=== PATIENT | male | born 1945 | race Caucasian/White ===

== ENCOUNTER 2019-05-17 23:35 | Observation (INO) | payer MEDICARE, BC ==
[2019-05-17] MEDS ORDERED: Aspirin Chewable 81 MG TAB ONE (23:54)
[2019-05-18] MEDS ORDERED: Ondansetron PF 4 MG/2 ML Vial ONE (00:05)
--- NOTE | 2019-05-18 00:05 | RAD ---
Chest AP view INDICATION: Chest pain COMPARISON: July 31, 2017 FINDINGS: Lungs:Bibasilar volume loss Cardiac silhouette:Heart size is normal. Midline sternotomy changes and dual-lead pacemaker are stabl e. There is a right chest wall port. Pulmonary vasculature:Normal Pleural spaces:No pleural effusion or pneumothorax is demonstrated. Upper abdomen:No abnormality seen. Osseous structures: No acute osseous abnormality. Additional findings:None. IMPRESSION: Bibasilar atelectasis.
[2019-05-18 00:08] LABS: INR-International Normal Ratio 1.8; PTT 40.7 SEC (22.9-36.1); Prothrombin Time 20.4 SEC (12.0-14.7)
[2019-05-18 00:17] LABS: Hemoglobin 9.4 g/dL (14.0-18.0); Hypochromia SLIGHT = 6-15 cells (100X) (0-5/hpf); Lymphocytes 52 % (21-51); MDiff Complete? YES; Macrocytosis SLIGHT = 6-15 cells (100X) (0-5/hpf); Mean Corpuscular HGB CONC 34.9 g/dL (32.0-36.0); Mean Corpuscular Hemoglobin 41.3 pg (27.0-31.0); Mean Platelet Volume 9.4 fL (7.4-10.4); Monocytes 16 % (0-10); Neutrophil 32 % (42-75); Platelet Count 41 thou/uL (130-400); Platelet Morphology Comment Appears Decreased; RBC Distribution Width 16.9 % (11.5-14.5); Red Blood Cell (RBC) Count 2.28 mill/uL (4.70-6.10); White Blood Cell (WBC) Count 2.9 thou/uL (4.8-10.8)
[2019-05-18 00:24] LABS: ALT (SGPT) 85 U/L (8-55); AST (SGOT) 121 U/L (5-34); Albumin 3.4 g/dL (3.4-4.8); Alkaline Phosphatase 137 U/L (40-110); Anion Gap 14 mmol/L (10-20); BUN (Urea Nitrogen) 13 mg/dL (8.4-25.7); Calc. Creatinine Clearance 0 mL/min (70-130); Carbon Dioxide 28 mmol/L (23-31); Chloride 103 mmol/L (98-107); Estimated GFR-MDRD 61; Globulin 3.1 g/dL (2.4-3.5); Glucose 110 mg/dL (83-110); Potassium 4.2 mmol/L (3.5-5.1); Protein, Total 6.5 g/dL (5.8-8.1); Sodium 141 mmol/L (136-145)
[2019-05-18 00:46] LABS: CKMB 0.8 ng/mL (0-6.6)
[2019-05-18] MEDS ORDERED: Bisacodyl 10 MG SUPP PR PRN (02:19)
[2019-05-18] MEDS ORDERED: Ondansetron ODT 4 MG TAB PO PRN (02:19)
[2019-05-18] MEDS ORDERED: Nitroglycerin 0.4 MG TAB (25 Tab Bottle) SL PRN (02:21)
[2019-05-18] MEDS ORDERED: Morphine 2 MG/ML SYRINGE SLOW IVP PRN (02:21)
[2019-05-18 03:02] LABS: Troponin I 0.012 ng/mL (< 0.028)
[2019-05-18 03:15] VITALS: BMI 26.1
--- NOTE | 2019-05-18 03:16 | HP ---
PRESENTING COMPLAINT: Chest pain. HISTORY OF PRESENT ILLNESS: Mr. Larissa Linares is a 74-year-old male with past medical history of liver cirrhosis with recurrent hepatic encephalopathy, history of coronary artery disease status post CABG 15 years ago with no followup PCI or cardiac event since then, who was brought in by the today after the patient reportedly complained of chest pain. The patient points to his abdomen as the location of his chest pain. He also admits to feeling weak and having pain all over his body. He denies any worsening shortness of breath. The patient is a poor historian, is helping his history. Apparently, the patient has been forgetting his afternoon dose of lactulose. states the patient appears more confused than his baseline. The patient just feels weak. He is unable to give more history. PAST MEDICAL HISTORY: Significant for hepatic encephalopathy, history of liver cirrhosis, history of AML status post chemo, history of chemo-induced bradycardia status post pacemaker placement. PAST SURGICAL HISTORY: Status post CABG as well as a pacemaker placement. FAMILY HISTORY: Noncontributory in this 74-year-old male. SOCIAL HISTORY: The patient is a lifelong nonsmoker. No history of alcohol or illicit drug use. Resides in a community with his spouse, who is the patient's caregiver. HOME MEDICATIONS: See medication full list after reconciliation. ALLERGIES: NO NEW DRUG ALLERGIES. REVIEW OF SYSTEMS: Poor due to the patient being confused. The patient admits to generalized body pain. All other systems reviewed, negative. The patient also complaining of dysuria with intermittent urinary incontinence. PHYSICAL EXAMINATION: VITAL SIGNS: Blood pressure of 134/66, pulse of 65, respiratory rate of 12, O2 saturation 100% on room air. GENERAL: Elderly male. On nasal cannula O2, but taking off, the patient is saturating 100%. HEENT: Head is atraumatic, normocephalic. Pupils equal, reactive to light. Anicteric. [place] conjunctivae. Dry oral mucosa. NECK: No JVD. No carotid bruit. RESPIRATORY: Good air entry. No crepitations. CARDIOVASCULAR: S1 and S2, palpable pacemaker in-situ. Also right chest wall chemo port in-situ. ABDOMEN: Tenderness over the epigastric, extending to the left lower quadrant, left upper quadrant but no guarding. Bowel sounds positive. RECTAL: Deferred. EXTREMITIES: No pedal edema. No calf tenderness. Also noted tenderness over the spine as well as bilateral shoulder area. NEUROLOGIC: The patient is alert, oriented to person, but not to time or place (the patient thinks he is in senior living), and moving extremities equally with no neurological focal motor deficit. LABORATORY DATA: WBC 2.9, hemoglobin 9.4, platelets 41, neutrophils 32%. INR 1.8, PTT 40, potassium 4.2, bicarb 28, BUN 13, creatinine 1.1. AST elevated at 121, ALT 85, alkaline phosphatase 137. Troponin 0.03. Chest x-ray shows bibasilar atelectasis. IMPRESSION: 1. Generalized body pain. 2. History of coronary artery disease. 3. Rule out urinary tract infection. 4. Altered mental status with presumed recurrent hepatic encephalopathy due to lactulose nonadherence. PLAN: We admit the patient to observation status for the following. 1. Generalized body pain, doubt chest pain since the patient pointing to his abdomen as etiology of pain. We obtain serial set of cardiac enzymes. We also obtain ammonia level. We will do p.r.n. pain medication as tolerated with IV morphine. Avoid confusion. 2. Presumed UTI. We will obtain UA now. 3. Altered mental status with presumed hepatic encephalopathy. We will obtain serum ammonia level. Resume lactulose t.i.d. for now. If elevated ammonia, may need to increase lactulose dosage. 4. Pancytopenia, stable. Continue to monitor. 5. Advance directive. states the patient wants to be DNR. We will leave as DNR status for now. 6. DVT prophylaxis. We will do subcutaneous heparin. TIME SPENT: Total time spent in review of record greater than 55 minutes. Job ID: [id number]
[2019-05-18] MEDS ORDERED: Levothyroxine Sodium 25 MCG TAB PO SCH (06:00)
[2019-05-18 06:47] LABS: Bacteria/HPF None Seen HPF (None Seen); Bilirubin Negative (Negative); Blood, Urine Negative (Negative); Clarity Clear (Clear); Glucose, Urine (Dipstick) Normal (Negative); Leukocyte Negative Leu/uL (Negative); Nitrite Negative (Negative); Protein, Urine (Dipstick) 20 mg/dL (Neg-Trace); RBC/HPF 0-3 HPF (0-3); Squamous Epithelial None Seen HPF (0-3); Urobilinogen 6 mg/dL (Less than 2); WBC/HPF 0-3 HPF (0-3)
[2019-05-18 06:59] LABS: Urine Culture Reflex No No
[2019-05-18] MEDS ORDERED: Tamsulosin HCl 0.4 MG CAP PO SCH (09:00)
[2019-05-18] MEDS ORDERED: Aggrenox 200-25mg CAP PO SCH (09:00)
[2019-05-18] MEDS ORDERED: Famotidine 20 MG TAB PO SCH (09:00)
[2019-05-18] MEDS: Heparin 5,000 UNITS/ML VIAL SC SCH ×2 (10:16→15:45)
[2019-05-18 11:49] LABS: Hemoglobin 9.2 g/dL (14.0-18.0); Mean Corpuscular HGB CONC 33.6 g/dL (32.0-36.0); Mean Corpuscular Hemoglobin 39.5 pg (27.0-31.0); Mean Platelet Volume 9.7 fL (7.4-10.4); Platelet Count 41 thou/uL (130-400); RBC Distribution Width 17.4 % (11.5-14.5); Red Blood Cell (RBC) Count 2.34 mill/uL (4.70-6.10)
[2019-05-18 12:09] LABS: ALT (SGPT) 95 U/L (8-55); AST (SGOT) 152 U/L (5-34); Albumin 3.2 g/dL (3.4-4.8); Alkaline Phosphatase 114 U/L (40-110); Anion Gap 13 mmol/L (10-20); BUN (Urea Nitrogen) 13 mg/dL (8.4-25.7); Bilirubin, Total 2.8 mg/dL (0.2-1.2); Calc. Creatinine Clearance 74 mL/min (70-130); Calcium 8.7 mg/dL (7.8-10.44); Carbon Dioxide 25 mmol/L (23-31); Chloride 107 mmol/L (98-107); Estimated GFR-MDRD 75; Glucose 92 mg/dL (83-110); Potassium 3.9 mmol/L (3.5-5.1); Protein, Total 6.2 g/dL (5.8-8.1); Sodium 141 mmol/L (136-145)
[2019-05-18 12:13] LABS: Troponin I 0.032 ng/mL (< 0.028)
[2019-05-18 12:20] LABS: Band 2 % (5-11); Lymphocytes 38 % (21-51); MDiff Complete? YES; Macrocytosis SLIGHT = 6-15 cells (100X) (0-5/hpf); Metamyelocyte 1 % (0-0); Monocytes 13 % (0-10); Myelocyte 2 % (0-0); Neutrophil 23 % (42-75); Ovalocytes MODERATE= 6-15 cells (100X) (0-1/hpf); Platelet Morphology Comment Appears Decreased; Polychromasia MODERATE = 3-4 cells (100X) (0-2/hpf); Reactive Lymphocytes 13 % (0-10); Reflex for Review?? YES; Schistocytes SLIGHT = 2-5 cells (100X) (0-1/hpf); Tear Drops SLIGHT = 2-5 cells (100X) (0-1/hpf)
[2019-05-18 15:52] VITALS: BP 124/60; TEMP 97.6
[2019-05-18] MEDS ORDERED: Calcium Carbonate 600 MG TAB PO SCH (21:00)
[2019-05-18] MEDS ORDERED: Rifaximin 550 MG TAB PO SCH (21:00)
[2019-05-18] MEDS ORDERED: Simvastatin 5 MG TAB PO SCH (21:00)
[2019-05-19] MEDS ORDERED: Potassium Chloride 20 MEQ TAB PO SCH (08:00)
--- NOTE | 2019-05-19 14:00 | DIS ---
DATE OF ADMISSION: 05/18/2019 DATE OF DISCHARGE: 05/18/2019 PRIMARY CARE PHYSICIAN: Dr. David Hogan. REASON FOR ADMISSION: Chest pain. DIAGNOSES AT DISCHARGE: 1. Atypical chest pain, resolved. 2. Hepatic encephalopathy, mild, chronic. 3. End-stage liver disease. 4. Abdominal pain secondary to #3, improved. 5. Urinary tract infection ruled out. 6. Pancytopenia. PROCEDURES: None. CONSULTATIONS: None. SUMMARY OF HOSPITAL COURSE: This is a 74-year-old white male with a known history of liver cirrhosis with recurrent hepatic encephalopathy, also with history of coronary artery disease, status post CABG 15 years ago without chest complaints since. He came into the emergency room, was reporting some chest pain. On admission, he actually pointed to his abdomen when describing chest discomfort and that was gone, and mostly his pain was in his lower abdomen. He noted this over the last couple of days along with mild weakness over the rest of his body. This has gotten worse since he has not been taking his lactulose 3 times a day, just twice a day. No other significant history. The states that his mental status is baseline with mild confusion after a dose of lactulose in the hospital, but his mental status that was mildly confused was back to his baseline. The patient was observed in the hospital. Troponins were trended. He did have a mildly indeterminate troponin that did not elevate over the course of his hospitalization. He had no further chest complaints. His EKG was unchanged previously and showed no ST- segment changes. There is also concern about a possible UTI. Urinalysis was done, which showed negative for infection. The patient was doing decently well on the day of discharge. He did have Physical Therapy work with him. He got up and walked a little bit in the room and then his knees gave out underneath him. He required significant assistance to get back into the bed. and patient relate this to him not having walked much recently and really staying in bed mostly for the last couple of days. I did discuss with and the patient the negative cardiac workup and need for cardiac outpatient followup with his normal programmer analyst consultant who is at [facility]. I also discussed with them his decompensated physical status and inability to walk safely at home. The states that she has a wheelchair at home and we will just have him transition to that and move him around the room. They did not want to look into rehab stays, SNF, or hospice at this point. I did stress to them that if he has recurrent chest pain or if he gets worse, than he should return to the hospital. They did express understanding of this and we will set up his cardiology appointment when they get home. I did examine the patient on the day of discharge. He had no abdominal tenderness to palpation. No chest pain. Normal vital signs. Of note, when his knees collapsed underneath him, he did not have any hypotension or vital sign abnormalities per PT. DISCHARGE MANAGEMENT: Discharged home to continue home health. He already has Physical Therapy coming to his house. ACTIVITY: As tolerated, but ambulate with assistance of physical therapy only. DIET: Healthy heart fluid-restricted diet. MEDICATIONS: The patient is to resume all of his home medications. 1. Calcium 1200 mg twice a day. 2. Lactulose 30 mL three times a day. They can increase this further if he is not passing soft bowel movements. 3. Synthroid 88 mcg daily. 4. Zofran 4 mg three times a day as needed. 5. Potassium chloride 20 mEq daily. 6. Pravastatin 20 mg at night. 7. Xifaxan 550 mg twice a day. 8. Tamsulosin 0.4 mg daily. 9. Robaxin as needed. Job ID: [id number] [facility]
== END 2019-05-18 17:07 | disposition home health service (06) ==
LOC: ERS 23:35 → 2SW 05-18 02:39
PROVIDERS: ADMIT Internal Medicine; ATTEND Internal Medicine
DX: R07.89 Other chest pain (principal); K72.90 Hepatic failure, unspecified without coma; D61.818 Other pancytopenia; I25.10 Atherosclerotic heart disease of native coronary artery without angina pectoris; F31.9 Bipolar disorder, unspecified; K74.60 Unspecified cirrhosis of liver; Z66 Do not resuscitate; Z85.6 Personal history of leukemia; Z79.899 Other long term (current) drug therapy; Z88.0 Allergy status to penicillin; Z91.048 Other nonmedicinal substance allergy status; Z95.0 Presence of cardiac pacemaker; Z95.1 Presence of aortocoronary bypass graft
CPT/HCPCS: 71045; 80053 ×2; 81001; 82140; 82553; 84484 ×3; 85025 ×2; 85610; 85730; 93005; 96374; 97139 ×2; 99285; G0378 ×2; 36415; 85060; J2405

== ENCOUNTER 2019-06-03 03:59 | Inpatient (IN) | payer MEDICARE, BC ==
[2019-06-03 05:16] LABS: INR-International Normal Ratio 1.9; PTT 42.1 SEC (22.9-36.1); Prothrombin Time 21.8 SEC (12.0-14.7)
[2019-06-03 05:28] LABS: Hemoglobin 6.6 g/dL (14.0-18.0); Mean Corpuscular HGB CONC 34.1 g/dL (32.0-36.0); Mean Corpuscular Hemoglobin 39.7 pg (27.0-31.0); Mean Platelet Volume 10.9 fL (7.4-10.4); Platelet Count 40 thou/uL (130-400); RBC Distribution Width 17.6 % (11.5-14.5); Red Blood Cell (RBC) Count 1.66 mill/uL (4.70-6.10); White Blood Cell (WBC) Count 3.7 thou/uL (4.8-10.8)
[2019-06-03 05:31] LABS: ALT (SGPT) 64 U/L (8-55); AST (SGOT) 83 U/L (5-34); Alkaline Phosphatase 91 U/L (40-110); Anion Gap 14 mmol/L (10-20); BUN (Urea Nitrogen) 16 mg/dL (8.4-25.7); Bilirubin, Total 2.9 mg/dL (0.2-1.2); Calc. Creatinine Clearance 0 mL/min (70-130); Calcium 8.2 mg/dL (7.8-10.44); Carbon Dioxide 25 mmol/L (23-31); Chloride 103 mmol/L (98-107); Estimated GFR-MDRD 81; Glucose 99 mg/dL (83-110); Potassium 3.7 mmol/L (3.5-5.1); Sodium 138 mmol/L (136-145)
[2019-06-03 05:45] LABS: Band 1 % (5-11); Differential Comment Immature Cell(s); Lymphocytes 40 % (21-51); Metamyelocyte 1 % (0-0); Monocytes 8 % (0-10); Myelocyte 3 % (0-0); Neutrophil 35 % (42-75); Platelet Morphology Comment Appears Decreased
[2019-06-03 05:46] LABS: MDiff Complete? YES
[2019-06-03 07:07] LABS: Reticulocyte Count 6.3 % (0.5-1.5)
--- NOTE | 2019-06-03 08:32 | CT ---
CT ABDOMEN AND PELVIS WITH CONTRAST: COMPARISON: 08/03/2017. HISTORY: Right upper quadrant abdominal pain. TECHNIQUE: Multiple contiguous axial images were obtained in a CT of the abdomen and pelvis with contrast. Sagi ttal and coronal reformats were performed. FINDINGS: The liver is small and slightly nodular in appearance. There is a moderate amount of ascites. A michael cified gallstone is seen in the gallbladder. The kidneys, adrenal glands, spleen, and pancreas are u nremarkable. No free air is seen in the abdomen or pelvis. The large and small bowel are unremarkable. Atheroscl erotic calcifications are seen in the aorta. No abdominal or pelvic lymphadenopathy are seen. Atelectasis is seen in both lung bases. Degenerative changes are seen in the spine. The patient is status post CABG. The visualized inferior thoracic is otherwise unremarkable. IMPRESSION: 1. Cirrhosis with sequelae of portal hypertension/ascites. 2. Cholelithiasis. POS: [facility]
[2019-06-03] MEDS ORDERED: Iopamidol-370 76% 500 ML 1 ML ONE (09:53)
--- NOTE | 2019-06-03 09:59 | HP ---
PRIMARY CARE PHYSICIAN: Dr. Hogan CHIEF COMPLAINT: Abdominal pain. HISTORY OF PRESENT ILLNESS: The history of present illness is taken from the patient's who is at the bedside. She says that the patient has a history of cirrhosis and he has been diagnosed with known cirrhosis for the past 2 years. She is not sure of the cause of the cirrhosis. He was never a drinker. She believes it may be due to chemotherapy related to AML. Nevertheless, the patient was recently hospitalized here for hepatic encephalopathy. She admits that the patient typically will refuse to take his evening dose of lactulose. He was treated here and released. She says that in the last couple of days he has been complaining of abdominal pain. She is not really sure where it is located, but says that last night he was yelling out complaining of the pain. She says he has not had a bowel movement in 4 days. There has been no vomiting, no melena, and his last bowel movement was more or less loose, but there was no blood there. She also noted that he looked short of breath. He was sitting in the chair and appeared to be panting. He has home oxygen and she put oxygen on him and he seemed to improve, but due to the abdominal pain, she brought him into the ER for evaluation. When he was evaluated, he was found to have a hemoglobin of 6.6, and he is also pancytopenic and he has worsening coagulopathy as well as his bilirubin is higher than on previous admissions and he is being admitted for acute anemia and decompensated cirrhosis. REVIEW OF SYSTEMS: Unobtainable as the patient is basically confused and not able to contribute much other than he does endorse having abdominal pain. He points to the lower right quadrant, where he was experiencing the pain, but otherwise was not able to offer any additional information. PAST MEDICAL HISTORY: Taken from his previous hospital stay and includes cirrhosis. It appears to be cryptogenic and history of hepatic encephalopathy, chemotherapy-induced bradycardia and AML. PAST SURGICAL HISTORY: He has had a pacemaker placed. ALLERGIES: TO PENICILLIN AND HE IS NOT SURE WHAT THE REACTION IS. SOCIAL HISTORY: He is a lifelong smoker and he smoked about a half a pack a day. His said he never drank. He is and he wants to be a DNR. FAMILY HISTORY: Significant for coronary artery disease in mother with Parkinson. CURRENT MEDICATIONS: Include: 1. Levothyroxine 88 mcg daily. 2. Pravastatin 20 mg daily. 3. Tamsulosin 0.4 mg daily. 4. Hydrocortisone 5 mg twice a day. 5. Rifaximin as directed. 6. Lactulose 30 mL and that is 20 g 3 times a day. 7. Zofran 4 mg as needed. 8. Potassium chloride 20 mEq as needed. 9. Ranitidine 150 mg twice daily. 10. Vitamin D3 2000 units once a day. PHYSICAL EXAMINATION: GENERAL: He is confused. He is chronically ill in appearance and he is jaundice. VITAL SIGNS: Blood pressure is 93/49, heart rate 85, respiratory rate of 18, temperature is 97.8, O2 saturation was 91% on room air. HEENT: Pupils are equal and reactive. He has icteric sclerae. Throat, there is no erythema. No exudates. NECK: No adenopathy. No bruits. LUNGS: Clear to auscultation. There is no wheezing, no rales, no rhonchi CARDIOVASCULAR: He has a normal S1 and S2. There is no S3 or S4. No murmurs, clicks, or rubs. ABDOMEN: Obese, slightly distended. He has some mild diffuse tenderness. There is no rebound, no guarding. He did have some stigmata of chronic liver disease. EXTREMITIES: He has no edema and he does have some muscle wasting. No joint effusions. NEUROLOGICAL: Exam is grossly nonfocal. LABORATORY DATA: White blood cell count 3.7, hemoglobin 6.6, hematocrit is 19.4 , and platelet count of 40. INR is 1.9. The sodium is 138, potassium 3.7, chloride is 103, CO2 is 25, BUN of 16, creatinine 0.92, glucose is 99, bilirubin is 2.9. ALT of 64, AST of 83. ASSESSMENT: This is a 74-year-old gentleman, who presents with [id number] anemia. No history of any recent gastrointestinal bleed that is known. Will check iron studies to further clarify, as well as a reticulocyte count. However, he is at risk for potential esophageal varices as well as potentially peptic ulcer disease and he also appears to have decompensated cirrhosis. For this reason, we are going to admit the patient and consult gastroenterology for evaluation. We will await the results of the CT scan. He may require paracentesis. We will transfuse him [address] him on IV Protonix as well as consider IV Sandostatin. Monitor his hemoglobin and hematocrit and further recommendations to follow. Job ID: [id number] [facility]
[2019-06-03] MEDS ORDERED: Sodium Chloride 0.9% (PF) 10 ML VIAL FS PRN (10:46)
[2019-06-03] MEDS ORDERED: Pantoprazole 40 MG VIAL IVP SCH (11:00)
[2019-06-03 11:22] LABS: Reticulocyte Count 6.6 % (0.5-1.5)
[2019-06-03 11:48] LABS: Iron 155 ug/dL (65-175); Iron Binding Capacity, Total 148 mcg/dL (261-462)
[2019-06-03 16:00] VITALS: BMI 29.0
--- NOTE | 2019-06-03 18:52 | CON ---
DATE OF CONSULTATION: 06/03/2019 REQUESTING PHYSICIAN: Edgardo Stewart MD REASON FOR CONSULTATION: Cirrhosis and acute on chronic anemia. HISTORY OF PRESENT ILLNESS: Vijay Dias is a 74-year-old gentleman, who was admitted to the hospital this morning. He has a significant past medical history of coronary artery disease, status post CABG; and myelodysplastic syndrome. History is obtained mainly from the patient's . She says that back in 2014, his myelodysplastic syndrome progressed to AML, and he underwent chemotherapy treatments for a couple of years at that point. He subsequently developed bradycardia and had to have a pacemaker placed. He was also subsequently diagnosed with cirrhosis about 2 years ago. He has seen Dr. Arden Rahman at [facility] in the past. She says he has undergone EGD and colonoscopy in the remote past with Dr. Rahman, but has not seen him for some time, but they were planning to see him later this month. At any rate, Mr. Dias is managed for hepatic encephalopathy with lactulose and rifaximin. She denies any prior history of gastrointestinal bleeding or any prior issues with ascites for the patient. Over the past few days, the patient's mental status has been a bit below baseline and he has also been complaining intermittently of some migratory abdominal discomfort throughout the abdomen. She says he was having some diarrhea for several days and so backed off his lactulose over the past 2 days, he has only taken it twice daily and has not had any bowel movement during that time. Upon presentation to the hospital here, labs demonstrate pancytopenia with an acute on chronic anemia, hemoglobin is 6.6. This is down from his baseline which seems to be in the 9 to 10 range just a few weeks ago. He also has worsening thrombocytopenia with platelets of 40. BUN is normal. There has been no melena or hematochezia. No vomiting. No fever. Imaging shows nodular liver and also moderate ascites. REVIEW OF SYSTEMS: Full review of systems including constitutional, head, eyes, ears, nose, throat, GI, , cardiovascular, respiratory, musculoskeletal, neurologic systems is negative except as noted in the HPI. PAST MEDICAL HISTORY: 1. Cirrhosis, unknown etiology, diagnosed 2 years ago. 2. Hepatic encephalopathy, on lactulose and rifaximin. 3. Myelodysplastic syndrome. 4. AML, status post chemotherapy in 2014. 5. Bradycardia, status post pacemaker placement. 6. Coronary artery disease, status post CABG. 7. Home oxygen use at night. ALLERGIES: PENICILLIN. OUTPATIENT MEDICATIONS: 1. Levothyroxine. 2. Pravastatin. 3. Tamsulosin. 4. Hydrocortisone 5 mg twice daily. 5. Rifaximin 550 mg twice daily. 6. Lactulose 30 mL three times daily, with some history of nonadherence. 7. Zofran as needed. 8. Potassium chloride. 9. Ranitidine 150 mg twice daily. 10. Vitamin D3 of 2000 units daily. FAMILY HISTORY: Significant for coronary artery disease and parkinsonism in mother. No known family history of GI illness, malignancy, or liver disease. SOCIAL HISTORY: He is a lifelong smoker of about a half a pack per day. No alcohol use. No drug use. He is DNR status. PHYSICAL EXAMINATION: VITAL SIGNS: Temperature 98.3, pulse 81, blood pressure 113/56, and 98% oxygen saturation on 3 L nasal cannula. GENERAL: Pale, jaundiced, 74-year-old man appearing chronically ill, lying in bed comfortably, somnolent but arousable, in no acute distress. SKIN: He is pale. He is jaundiced. EYES: Scleral icterus. Extraocular movements intact. ENT: Mucous membranes moist. No oral lesions. LYMPH: No submandibular or supraclavicular lymphadenopathy. THYROID: Nontender to palpation. HEART: Regular rate and rhythm. LUNGS: Clear to auscultation bilaterally. ABDOMEN: Mild distention. Some dullness to percussion in the flanks. Bowel sounds are present. Soft, nontender to palpation. EXTREMITIES: No peripheral edema. VESSELS: Radial pulses 2+ bilaterally. NEUROLOGIC: The patient moves all extremities. Cranial nerves appear to be intact bilaterally. No focal deficits. LABORATORY STUDIES: Hemoglobin 6.6, MCV 117, WBC 3.7, platelets 40. INR is 1.9. BUN 16, creatinine 0.92, total bilirubin 2.9, alkaline phosphatase 91, AST 83, ALT 64, albumin 3.0. Ammonia only 35. Ferritin elevated to , iron 155, and TIBC is 148. IMAGING STUDIES: CT of the abdomen and pelvis demonstrates nodular liver, moderate ascites, and cholelithiasis. Spleen and pancreas appear normal. ASSESSMENT AND PLAN: 1. Pancytopenia. 2. Acute on chronic anemia, macrocytic, with lab evidence of iron overload and no reported overt gastrointestinal bleeding. 3. History of myelodysplastic syndrome and acute myeloid leukemia. The patient does indeed have a chronic pancytopenia with worsening hemoglobin over the past few days, but no other overt evidence of gastrointestinal bleeding. Note, the BUN is normal, this certainly would not represent brisk ulcer bleed or variceal hemorrhage. Occult gastrointestinal bleeding lesion is certainly a possibility, however, the patient really is not in any shape to undergo any endoscopy. If his clinical status were to improve and he wanted to proceed, we could potentially perform diagnostic EGD and colonoscopy later this admission. For now, we would check further labs including B12 and folic acid, and I think formal hematology consultation would certainly be reasonable given his known history of myelodysplastic syndrome and acute myeloid leukemia. 4. Cirrhosis, unknown etiology. 5. Ascites, possibly new onset, with no given history of prior ascites. 6. Coagulopathy. The patient's cannot recall him ever undergoing liver biopsy or having any formal etiology for his cirrhosis. Note, the ferritin is elevated, but this is possibly secondary to prior blood transfusions. We will obtain lab workup including viral hepatitis serologies, hemochromatosis genetic profile, autoimmune markers, etc. I also do think it would be worthwhile to send him for diagnostic paracentesis with Interventional Radiology. 7. Hepatic encephalopathy. Continue on lactulose and rifaximin. Overall, given the patient's comorbidities and clinical status, prognosis is guarded. Job ID: [id number]
[2019-06-03] MEDS: Rifaximin 550 MG TAB PO SCH (21:03)
[2019-06-03] MEDS: Pantoprazole 40 MG VIAL IVP SCH (21:04)
[2019-06-04 06:21] LABS: Hemoglobin 7.6 g/dL (14.0-18.0); Mean Corpuscular HGB CONC 33.8 g/dL (32.0-36.0); Mean Platelet Volume 10.8 fL (7.4-10.4); Platelet Count 25 thou/uL (130-400); RBC Distribution Width 22.7 % (11.5-14.5); Red Blood Cell (RBC) Count 2.11 mill/uL (4.70-6.10)
[2019-06-04 06:38] LABS: Hypochromia SLIGHT = 6-15 cells (100X) (0-5/hpf); Lymphocytes 66 % (21-51); MDiff Complete? YES; Macrocytosis SLIGHT = 6-15 cells (100X) (0-5/hpf); Monocytes 8 % (0-10); Neutrophil 20 % (42-75); Platelet Morphology Comment Appears Decreased; Reactive Lymphocytes 6 % (0-10)
[2019-06-04 06:43] LABS: ALT (SGPT) 54 U/L (8-55); AST (SGOT) 70 U/L (5-34); Albumin 2.9 g/dL (3.4-4.8); Alkaline Phosphatase 91 U/L (40-110); Anion Gap 13 mmol/L (10-20); BUN (Urea Nitrogen) 16 mg/dL (8.4-25.7); Bilirubin, Total 3.9 mg/dL (0.2-1.2); Calc. Creatinine Clearance 73 mL/min (70-130); Calcium 8.4 mg/dL (7.8-10.44); Carbon Dioxide 28 mmol/L (23-31); Chloride 103 mmol/L (98-107); Estimated GFR-MDRD 70; Glucose 85 mg/dL (83-110); Potassium 3.9 mmol/L (3.5-5.1); Protein, Total 5.9 g/dL (5.8-8.1); Sodium 140 mmol/L (136-145)
[2019-06-04 06:58] LABS: Vitamin B12 1917 pg/mL (211-911)
[2019-06-04 07:12] LABS: HBCM Index 0.06 S/CO (0-0.79); HBSAg Index 0.21 S/CO (0-0.99); Hep A IgM AB Non-Reactive (NonReactive); Hep B Surf Ag Non-Reactive S/CO (NonReactive); Hep C IgG Ab Non-Reactive (NonReactive); Hep C Index 0.12 S/CO (0-0.79); Hepatitis B Core IgM Abs Non-Reactive (NonReactive)
[2019-06-04] MEDS ORDERED: Prevnar 13-Val Conj/PF 0.5 ML SYRINGE IM ONE (09:00)
[2019-06-04] MEDS: Folic Acid 1 MG TAB PO SCH (09:38)
[2019-06-04] MEDS: Rifaximin 550 MG TAB PO SCH ×2 (09:38→21:17)
[2019-06-04] MEDS: Pantoprazole 40 MG VIAL IVP SCH ×2 (09:39→21:18)
[2019-06-04 10:35] LABS: Hemoglobin 7.7 g/dL (14.0-18.0); Mean Corpuscular HGB CONC 33.3 g/dL (32.0-36.0); Mean Corpuscular Hemoglobin 35.6 pg (27.0-31.0); Mean Platelet Volume 10.9 fL (7.4-10.4); Platelet Count 37 thou/uL (130-400); RBC Distribution Width 22.9 % (11.5-14.5); Red Blood Cell (RBC) Count 2.18 mill/uL (4.70-6.10); White Blood Cell (WBC) Count 3.3 thou/uL (4.8-10.8)
[2019-06-04 11:54] LABS: Differential Comment Blast-Like Cell(s); Lymphocytes 27 % (21-51); MDiff Complete? YES; Metamyelocyte 1 % (0-0); Monocytes 25 % (0-10); Neutrophil 30 % (42-75); Nucleated RBC 1 % (0); Ovalocytes SLIGHT = 2-5 cells (100X) (0-1/hpf); Platelet Morphology Comment Appears Decreased; Polychromasia SLIGHT = 2-3 cells (100X) (0-2/hpf); Reactive Lymphocytes 3 % (0-10); Schistocytes SLIGHT = 2-5 cells (100X) (0-1/hpf)
[2019-06-04 12:11] LABS: ANA Symphony (Qualitative) Negative (Negative); ANA Symphony (Quantitative) 0.2 Ratio (< 0.7 Negative); EliA Vaculitis New Method **** NEW METHOD ****; Mitochondrial Ab 0.8 U/mL (<4 Negative); dsDNA IgG Antibody 0.9 IU/mL (<10 Negative)
--- NOTE | 2019-06-04 12:24 | PDOC.HOSPP ---
- Subjective Encounter Date: 06/04/19 Encounter Time: 12:23 Subjective: Mr. Dias was seen today in follow-up of anemia, and decompensated cirrhosis. He is a bit more alert today, but still confused. His is at bedside. - Objective Vital Signs & Weight: Vital Signs (12 hours) Temp Pulse Resp BP Pulse Ox 06/04/19 11:46 98.2 F 90 16 118/63 92 L 06/04/19 07:25 98.3 F 83 16 96 06/04/19 04:44 98.1 F 83 16 149/67 H 96 Weight Weight 179 lb 14.355 oz I&O: 06/03/19 06/04/19 06/05/19 06:59 06:59 06:59 Intake Total 590 Output Total 200 Balance 390 Result Diagrams: 06/04/19 10:04 06/04/19 05:52 Hospitalist ROS - Medication Medications: Active Medications Generic Name Dose Route Start Last Admin Trade Name Freq PRN Reason Stop Dose Admin Folic Acid 1 mg 06/04/19 09:00 06/04/19 09:38 Folvite PO Not Given DAILY ABRAHAM Lactulose 20 gm 06/03/19 21:00 06/04/19 09:38 Lactulose PO Not Given TID ABRAHAM Pantoprazole Sodium 40 mg 06/03/19 21:00 06/04/19 09:39 Protonix IVP 40 mg Q12HR ABRAHAM Administration Rifaximin 550 mg 06/03/19 21:00 06/04/19 09:38 Xifaxan PO Not Given BID ABRAHAM - Exam Eye: PERRL, scleral icterus Heart: RRR, no murmur, no gallops, no rubs, normal peripheral pulses Respiratory: CTAB, no wheezes, no rales, no ronchi, normal chest expansion, no tachypnea Gastrointestinal: soft, normal bowel sounds, tender to palpation (+ mild epigastric tenderness, and mild distention), distended Extremities: 1+ LE edema Neurological - other findings: + asterixis Musculoskeletal: generalized weakness Hosp A/P (1) Severe anemia Code(s): D64.9 - ANEMIA, UNSPECIFIED Status: Acute (2) Pancytopenia Code(s): D61.818 - OTHER PANCYTOPENIA Status: Acute (3) Cirrhosis, cryptogenic Code(s): K74.69 - OTHER CIRRHOSIS OF LIVER Status: Acute (4) AML (acute myelogenous leukemia) Code(s): C92.00 - ACUTE MYELOBLASTIC LEUKEMIA, NOT HAVING ACHIEVED REMISSION Status: Acute (5) Hepatic encephalopathy Code(s): K72.90 - HEPATIC FAILURE, UNSPECIFIED WITHOUT COMA Status: Acute - Plan * Severe anemia- GI evaluation appreciated- agree with Hematology work-up given his history of Myelodysplastic Syndrome * Transfuse as needed * Ascites- he is going for diagnostic paracentesis today * Confusion- he has some asterixis on exam- his says he has not had a bowel movement in several days- will increase the dose of Lactulose * Continue Rifixamin * Prognosis is guarded
[2019-06-04 14:02] LABS: RBC Count-Automated (BF) 0 /cumm; WBC/Nucleated-Auto (BF) 87 uL
[2019-06-04 14:21] LABS: BF Color Yellow; Body Fluid Source Peritoneal Fluid; Clarity Clear (Clear)
[2019-06-04 14:22] LABS: Tube # EDTA
--- NOTE | 2019-06-04 14:26 | CON ---
DATE OF CONSULTATION: REASON FOR CONSULTATION: Pancytopenia. HISTORY OF PRESENT ILLNESS: Mr. Dias is a 74-year-old gentleman with past medical historyof AML, MDS from chemotherapy and cirrhosis, who presented to the emergency room with altered mental status. He usually takes lactulose, but due to diarrhea had backed off on taking his medication. In the emergency room, he had a white count of 3.7, hemoglobin of 6.6, and a platelet count of 40,000. His denies any bleeding. He did have immature cells on his differential. He was admitted for further workup. GI was consulted. Iron studies were performed and ferritin was elevated 6600. His serum iron was 155. He did have folate deficiency of 3.8. He was transfused 1 unit of packed RBCs with improvement of his hemoglobin to 7.7. The patient was treated with chemotherapy for AML in 2014. He has been followed by his physician in [place] and [facility] in [place], last seen in April. History was obtained from his at bedside as he remains confused. PAST MEDICAL HISTORY: 1. AML status post chemotherapy 2014. 2. Myelodysplastic syndrome from chemotherapy. 3. Cirrhosis, unknown etiology. 4. Hepatic encephalopathy. 5. Coronary artery disease. PAST SURGICAL HISTORY: 1. Pacemaker placement. 2. CABG. ALLERGIES: TO PENICILLIN. HOME MEDICATIONS: 1. Calcium carbonate. 2. Lactulose. 3. Levothyroxine. 4. Robaxin. 5. Potassium. 6. Pravastatin. 7. Rifaximin. 8. Flomax. FAMILY HISTORY: Noncontributory. SOCIAL HISTORY: . Current smoker. REVIEW OF SYSTEMS: Positive for pain in his neck and legs, otherwise negative. PHYSICAL EXAMINATION: VITAL SIGNS: Temperature is 98.3, pulse is 83, respiratory rate 16, BP is 149/67, he is 96% on 2 L. GENERAL: This is a jaundiced male in no acute distress. HEENT: Normocephalic, atraumatic. Pupils are equal and reactive to light. Sclerae icteric. NECK: Supple. CV: Regular rate and rhythm. LUNGS: Clear anterior. ABDOMEN: Distended. Bowel sounds are positive. EXTREMITIES: No clubbing or cyanosis. SKIN: No rash. Jaundice. HEMATOLOGIC: No petechiae or purpura. NEUROLOGICAL: The patient is encephalopathic, but no neuromuscular deficits. PERTINENT LABS AND X-RAYS: Current WBCs 3.3, hemoglobin 7.7, hematocrit 23.2, platelet count is 37,000, 20% neutrophils, 66% lymphocytes, 12% Retic count is 6.6, PT is 21.8, INR is 1.9, PTT is 42.1. Sodium 140, potassium 3.9, chloride 103, CO2 is 28, BUN is 16, creatinine 1.04, calcium 8.4, iron 155, TIBC is 148, ferritin 6604, bilirubin 3.9, AST is 70, ALT is 54, alkaline phosphatase is 91. Ammonia is 35. Serum total protein 5.9, albumin 2.9, globulin 3.0. B12 is 1917, folate is 3.8. Urine is negative. IgG is normal. Hepatitis panel is nonreactive. Abdominal and pelvis CT shows cirrhosis with portal hypertension and ascites and cholelithiasis. ASSESSMENT: 1. 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 2. Folate deficiency. 3. Cirrhosis with ascites. 4. Hepatic encephalopathy. 5. Hypercoagulopathy from cirrhosis. 6. Jaundice. DISCUSSION: The patient has been transfused 1 unit of packed RBCs. There was no issue with compatibility, although his bilirubin and retic count are elevated. There appears to be no overt evidence of hemolysis. Review of labs from prior admission in early May shows 8% blast cells on his smear likely up to 12. Flow cytometry will be sent and review of smear by pathologist again is possible that his AML is becoming active. He does have a followup appointment with his oncologist in [place] in July. He may need inpatient transfer based on review of peripheral smear and flow cytometry. He is having ultrasound for his ascites and GI is working up for his elevated bilirubin. He has been started on folic acid daily. We will follow along with his hospital course. Thank you for the consult. Job ID: [id number]
--- NOTE | 2019-06-04 14:55 | PRG ---
DATE OF SERVICE: 06/04/2019 SUBJECTIVE: Mr. Dias underwent diagnostic paracentesis today, the studies are pending. Dr. Stewart increased his lactulose and he evidently did have a couple of bowel movements today. He is able to answer questions for me and seems more awake today than yesterday. His hemoglobin came up to 7.7 from 6.6 with 1 unit RBC transfusion. He has otherwise been stable. OBJECTIVE: VITAL SIGNS: Temperature 98.2, pulse 90, blood pressure 118/63, and 92% oxygen saturation on room air. GENERAL: Jaundiced, pale. He is awake and able to answer questions appropriately, in no acute distress. HEART: Regular rate and rhythm. LUNGS: Clear to auscultation bilaterally. ABDOMEN: Mild distention with ascites, not tense. Bowel sounds present. Nontender to palpation. EXTREMITIES: No peripheral edema. LABORATORY STUDIES: WBC is 3.3, hemoglobin is up to 7.7 after 1 unit RBC transfusion, and platelets are down to 37. INR is 1.9. Sodium 140, potassium 3.9, BUN 16, and creatinine 1.04. Total bilirubin up to 3.9, alkaline phosphatase 91, AST 70, and ALT 54. Ferritin 6604.2, iron 155, and TIBC 148. Ammonia 35, albumin 2.9. Vitamin B12 is normal at 1917. Folic acid is low at 3.8. Ascites fluid total protein is less than 1.0. Other ascites fluid studies are pending. Total IgG is normal at 1501. ASHLEY is negative. AMA is also negative. Viral hepatitis serology is negative. Other labs including hereditary hemochromatosis genetic profile, ceruloplasmin, smooth muscle antibody, and alpha-1 antitrypsin are also pending. ASSESSMENT/PLAN: 1. Pancytopenia. 2. Acute on chronic anemia, macrocytic. 3. Folic acid deficiency. I would recommend replacing with 1 mg of folic acid daily. Also awaiting Hematology consultation. Again, occult GI bleeding lesion is certainly possible and frankly it is likely given his thrombocytopenia and coagulopathy. However, with all of his comorbidities, particularly the thrombocytopenia, he would be high risk for any endoscopic investigation, and we are not planning on that at this point. 4. History of myelodysplastic syndrome and acute myeloid leukemia. The patient responded well to 1 unit RBC transfusion. There is no report of any overt bleeding here. 5. Cirrhosis, unknown etiology. Note, the negative viral hepatitis serologies and ASHLEY. Further studies are pending. In the past, this has been thought to possibly be due to a prior chemotherapy for his AML. 6. Ascites, possibly new onset. He underwent diagnostic paracentesis earlier today. Awaiting fluid studies. 7. Elevated ferritin. This is possibly secondary to prior blood transfusions. We are awaiting hemochromatosis genetic profile. 8. Hepatic encephalopathy. Continue on lactulose and rifaximin. The patient does seem more awake today. The patient's prognosis remains guarded. Job ID: [id number]
[2019-06-04 14:59] LABS: BF Segmented Neutrophils 6 %; Cell Count Non Hematic 89 %; Lymphocytes 5 %
--- NOTE | 2019-06-04 16:43 | ULT ---
Ultrasound-guided diagnostic paracentesis: DATE: 06/04/2019 HISTORY: 74 year old male with new onset ascites. TECHNIQUE: Proxy signed informed consent obtained from patient's (patient is not consentable because of alt ered mental status). Four-quadrant ultrasound survey of abdomen. Right lower quadrant selected. Overlying skin prepped and draped in usual sterile fashion. 25-gauge needle used to apply buffered li docaine superficially and deeply, under ultrasound guidance. The same 25-gauge needle was connected to a 25 mL syringe. 20 mL of nonhemorrhagic, straw-colored translucent fluid was aspirated into the s yringe. The syringe was sent to laboratory for analysis. Needle was removed. Patient tolerated procedure well. No complications. FINDINGS: There is a small volume of free intraperitoneal fluid. 25-gauge needle is visualized within the right lower quadrant pocket of fluid. 20 mL removed. IMPRESSION: Successful diagnostic paracentesis, yielding 20 mL of ascites fluid.
[2019-06-04] MEDS: Acetaminophen 325 MG TAB PO PRN (19:21)
[2019-06-05] MEDS: Rifaximin 550 MG TAB PO SCH (08:54)
[2019-06-05] MEDS: Folic Acid 1 MG TAB PO SCH (08:54)
[2019-06-05] MEDS: Pantoprazole 40 MG VIAL IVP SCH (08:55)
[2019-06-05] MEDS: Acetaminophen 325 MG TAB PO PRN ×3 (09:01→15:11)
[2019-06-05 09:44] LABS: Hemoglobin 7.1 g/dL (14.0-18.0); Mean Corpuscular HGB CONC 34.2 g/dL (32.0-36.0); Mean Platelet Volume 9.8 fL (7.4-10.4); Platelet Count 23 thou/uL (130-400); RBC Distribution Width 22.1 % (11.5-14.5); Red Blood Cell (RBC) Count 1.91 mill/uL (4.70-6.10); White Blood Cell (WBC) Count 2.3 thou/uL (4.8-10.8)
[2019-06-05 10:01] LABS: Anisocytosis MODERATE=16-30 cells (100X) (0-5/hpf); Band 2 % (5-11); Differential Comment Blast-Like Cell(s); Lymphocytes 33 % (21-51); MDiff Complete? YES; Metamyelocyte 3 % (0-0); Monocytes 32 % (0-10); Myelocyte 2 % (0-0); Neutrophil 9 % (42-75); Platelet Morphology Comment Appears Decreased; Polychromasia MODERATE = 3-4 cells (100X) (0-2/hpf); Reactive Lymphocytes 1 % (0-10); Tear Drops SLIGHT = 2-5 cells (100X) (0-1/hpf)
--- NOTE | 2019-06-05 12:17 | PDOC.MOPN ---
Interval History: confused. - Vital Signs Vital Signs: Vital Signs (12 hours) Temp Pulse Resp BP Pulse Ox 06/05/19 11:32 97.9 F 82 18 121/72 91 L 06/05/19 08:50 95 06/05/19 07:11 97.6 F 77 16 104/54 L 90 L 06/05/19 03:31 97.7 F 75 18 123/68 93 L Weight Weight 179 lb 14.355 oz - Physical Exam General: Cooperative HEENT: PERRLA Lungs: Clear to auscultation Cardiovascular: Regular rate Abdomen: Normal bowel sounds Extremities: No clubbing Neurological: Normal speech - Labs Result Diagrams: 06/05/19 09:19 06/04/19 05:52 Lab results: Laboratory Results - last 24 hr 06/05/19 09:19: WBC 2.3 L, RBC 1.91 L, Hgb 7.1 L, Hct 20.7 L, MCV 108.0 H, MCH 37.0 H, MCHC 34.2, RDW 22.1 H, Plt Count 23 L*, MPV 9.8, Neutrophils % (Manual) 9 L, Band Neuts % (Manual) 2 L, Lymphocytes % (Manual) 33, Reactive Lymphs % 1, Monocytes % (Manual) 32 H, Basophils % (Manual) 1, Metamyelocytes % (Man) 3 H, Myelocytes % 2 H, Neutrophils # Not Reportable, Lymphocytes # Not Reportable, Differential Comment Blast-Like Cell(s), Other Cell Type 17, Plt Morphology Comment Appears Decreased L, Polychromasia MODERATE = 3-4 cells H, Anisocytosis MODERATE=16-30 cells H, Tear Drop Cells SLIGHT = 2-5 cells 06/04/19 10:04: Smear Path Review 06/04/19 10:04: Flow Cytometry Interp 06/04/19 05:51: ASHLEY Screen Negative, ASHLEY Scrn Qualitative Negative, ASHLEY Scrn Quantitative 0.2, ASHLEY & Anti-MICHAEL New Method NEW METHOD , Anti-ds DNA IgG Ab 0.9, Anti-ds DNA Interp , Anti-Mitochondrial Ab 0.8, Mitochondria M2 Ab Intp 06/03/19 12:35: Fluid Total Protein Less than 1.0 06/03/19 12:35: Fluid Source Peritoneal Fluid, Fluid Tube Number EDTA, Fluid Color Yellow, Fluid Clarity Clear, Fluid WBC 87, Fluid RBC 0, Fluid Seg Neutrophil % 6, Fluid Lymphocytes % 5, Fluid Diff Path Review , Non- Hematological % 89, Fluid Comment Note: 06/03/19 05:41: Blood Type O POSITIVE, Antibody Screen NEGATIVE, Crossmatch See Detail Status: lab reviewed by mt - Pathology Pathology: 16 % blasts on peripheral blood. A/P - Problem (1) AML (acute myelogenous leukemia) Current Visit: No Code(s): C92.00 - ACUTE MYELOBLASTIC LEUKEMIA, NOT HAVING ACHIEVED REMISSION Status: Acute - Plan Plan: Discussed findings of flow with . Discussed treatment vs hospice. Patient has 16% blasts on peripheral blood. bone marrow deferred for transfer to [facility] where patient is established with Dr. Lisa Marcum for her opinion regarding treatment options. Transfuse today. Discussed with Dr. jackson and Dr. Stewart.
--- NOTE | 2019-06-05 12:19 | PDOC.HOSPP ---
- Subjective Encounter Date: 06/05/19 Encounter Time: 12:17 Subjective: Mr. Dias was seen today in follow-up of pancytopenia, with severe anemia. He says he feels better today than he has for the past few days. - Objective Vital Signs & Weight: Vital Signs (12 hours) Temp Pulse Resp BP Pulse Ox 06/05/19 11:32 97.9 F 82 18 121/72 91 L 06/05/19 08:50 95 06/05/19 07:11 97.6 F 77 16 104/54 L 90 L 06/05/19 03:31 97.7 F 75 18 123/68 93 L Weight Weight 179 lb 14.355 oz I&O: 06/04/19 06/05/19 06/06/19 06:59 06:59 06:59 Intake Total 590 730 Output Total 200 Balance 390 730 Result Diagrams: 06/05/19 09:19 06/04/19 05:52 Hospitalist ROS - Medication Medications: Active Medications Generic Name Dose Route Start Last Admin Trade Name Freq PRN Reason Stop Dose Admin Acetaminophen 325 mg 06/03/19 10:40 06/05/19 09:01 Tylenol PO 325 mg Q4H PRN Administration Headache/Fever/Mild Pain (1-3) Folic Acid 1 mg 06/04/19 09:00 06/05/19 08:54 Folvite PO 1 mg DAILY ABRAHAM Administration Lactulose 20 gm 06/04/19 13:00 06/05/19 08:54 Lactulose PO 20 gm QID ABRAHAM Administration Pantoprazole Sodium 40 mg 06/03/19 21:00 06/05/19 08:55 Protonix IVP 40 mg Q12HR ABRAHAM Administration Rifaximin 550 mg 06/03/19 21:00 06/05/19 08:54 Xifaxan PO 550 mg BID ABRAHAM Administration - Exam Eye: PERRL, scleral icterus Heart: RRR, no murmur, no gallops, no rubs, normal peripheral pulses Respiratory: CTAB, no wheezes, no rales, no ronchi, normal chest expansion Gastrointestinal: soft, non-tender, normal bowel sounds, no palpable masses, no hepatomegaly, distended Hosp A/P (1) Severe anemia Code(s): D64.9 - ANEMIA, UNSPECIFIED Status: Acute (2) Pancytopenia Code(s): D61.818 - OTHER PANCYTOPENIA Status: Acute (3) Cirrhosis, cryptogenic Code(s): K74.69 - OTHER CIRRHOSIS OF LIVER Status: Acute (4) AML (acute myelogenous leukemia) Code(s): C92.00 - ACUTE MYELOBLASTIC LEUKEMIA, NOT HAVING ACHIEVED REMISSION Status: Acute (5) Hepatic encephalopathy Code(s): K72.90 - HEPATIC FAILURE, UNSPECIFIED WITHOUT COMA Status: Acute - Plan * Severe anemia-discussed with ELIF Handy- he had about 17% blasts. This likely represents recurrence of the AML * The patient's would like transfer to [place] * Transfuse as needed * Cirrhosis - stable * Hepatic Encephalopathy- better- continue Lactulose and Rifixamin * Will initiate transfer to [place]
--- NOTE | 2019-06-05 14:07 | PRG ---
DATE OF SERVICE: 06/05/2019 SUBJECTIVE: Mr. Dias is feeling okay. He is visiting with his cousin, who feels that he is at his mental status baseline clarity. He reports having had one bowel movement so far today, nonbloody. He is tolerating his diet. No abdominal pain or shortness of breath complaints. OBJECTIVE: VITAL SIGNS: Temperature 97.9, pulse 80, blood pressure 116/65, and 92% oxygen saturation on room air. GENERAL: No acute distress. He is jaundiced and pale. HEART: Regular rate and rhythm. LUNGS: Clear to auscultation bilaterally. ABDOMEN: Mild distention, soft, nontender to palpation throughout. EXTREMITIES: No peripheral edema. LABORATORY STUDIES: WBC down to 2.3, hemoglobin 7.1, platelets down to 23. He has 17% blasts in peripheral blood. INR is 1.9. Sodium 140, potassium 3.9, BUN 16, creatinine 1.04. Peritoneal fluid studies come back negative for SBP with WBC only 87, only 6% segmented neutrophils, fluid total protein is less than 1. ASHLEY is negative. AMA is negative. Viral hepatitis serologies negative. Flow cytometry is suggestive of high-grade myeloid neoplasm. ASSESSMENT AND PLAN: 1. Pancytopenia, appears to be secondary to acute myelogenous leukemia recurrence. 2. Acute on chronic anemia, macrocytic. With no significant evidence of overt gastrointestinal bleeding, anemia does appear secondary to leukemia rather than a gastrointestinal blood loss. Cannot rule out occult gastrointestinal bleeding lesion, but no utility to endoscopic investigation in this clinical context, particularly with his degree of thrombocytopenia. 3. Folic acid deficiency. Recommend replacement with 1 mg daily. 4. Cirrhosis, unknown etiology. Notes negative viral hepatitis serologies and autoimmune markers. 5. Ascites. Diagnostic paracentesis does appear consistent with a transudate, negative for SBP. He has minimal intraabdominal fluid. 6. Hepatic encephalopathy. Continue on lactulose and rifaximin. The patient's mental status would appear to be at baseline today. I spoke with Rozina Carmona with the Hematology Service, who has recommended consideration of transfer to [facility] for discussion with his primary armature rewinder as to whether he is a candidate for any treatment for his AML. Obviously, prognosis is quite guarded considering his comorbidities, specifically with his liver disease. I agree with plans for transfer. His cirrhosis is otherwise stable. GI will sign off, but please call back anytime with questions or concerns. Job ID: [id number]
[2019-06-05 14:49] VITALS: TEMP 98.4
[2019-06-05 16:12] VITALS: BP 111/66
[2019-06-05] MEDS ORDERED: Ondansetron ODT 4 MG TAB PO PRN (17:48)
[2019-06-05] MEDS ORDERED: Ondansetron PF 4 MG/2 ML Vial IVP PRN (17:48)
--- NOTE | 2019-06-05 18:59 | DIS ---
DATE OF ADMISSION: 06/03/2019 DATE OF DISCHARGE: 06/05/2019 PRIMARY CARE PHYSICIAN: Dr. Hogan. DISCHARGE DISPOSITION: To [facility] in [place]. DISCHARGE DIAGNOSES: 1. Severe anemia. 2. Pancytopenia. 3. Recurrence of acute myelogenous leukemia. 4. Cirrhosis. 5. Hepatic encephalopathy. 6. Hypothyroidism. DISCHARGE MEDICATIONS: Include; 1. Protonix 40 mg IV q.12. 2. Folic acid 1 mg p.o. daily. 3. Flomax 0.4 mg p.o. daily. 4. Rifaximin 550 mg twice a day. 5. Pravastatin 20 mg at bedtime. 6. Zofran 4 mg t.i.d. as needed. 7. Potassium chloride 20 mEq p.o. daily. 8. Robaxin 500 mg at bedtime as needed. 9. Levothyroxine 88 mcg p.o. daily. 10. Lactulose 30 mg p.o. t.i.d. 11. Calcium carbonate 1200 mg p.o. twice a day. DIAGNOSTIC DATA: Imaging done during the patient's stay, the patient had a CT scan of the abdomen and pelvis showing cirrhosis with sequelae of portal hypertension and ascites as well as cholelithiasis. The patient had an ultrasound guided paracentesis and also had a flow cytometry done in which the findings were suspicious for evolving acute myelogenous leukemia. HOSPITAL COURSE: Mr. Dias is a pleasant 74-year-old gentleman, who was brought into the hospital due to severe weakness and abdominal pain. He apparently had been crying out due to abdominal pain and had some degree of confusion. When he was evaluated in the ER, he was found to be severely anemic with a hemoglobin of 6.6. He was also found to be pancytopenic, white blood cell count of 3.7, and a platelet count of 40. There was initial concern for GI bleed and for this reason, GI was consulted. However, lab work was also done to check his iron studies. B12 and folic acid were also ordered and he was found to have some degree of folic acid deficiency. However, there was concern that he could have recurrence of his AML and for this reason, Oncology was consulted. He underwent a flow cytometry, in which it was found that he had an atypical left shifted myeloid maturation with 16.2%, CD34 positive myeloblasts, suggestive of a high-grade myeloid neoplasm. For this reason, it was felt best that he be transferred to higher level of care. He had previously received treatment for the AML at [place] and he has been accepted and is being transferred there. Test to evaluate the cause of his cirrhosis is underway. ASHLEY screen was negative; however, ceruloplasmin antibody as well as a smooth muscle antibody were still pending. Also of note from the paracentesis, the white blood cell count there was 87. There was no rbc's, only 6% segmented neutrophils and total protein was less than 1. Job ID: [id number]
[2019-06-06 19:08] LABS: Smooth Muscle Total ABS 13 Units (0-19)
[2019-06-08 13:10] LABS: Alpha-1-Antitrypsin 156 mg/dL (101-187)
== END 2019-06-05 18:40 | disposition short-term general hospital (02) | DRG 835 ==
LOC: ERS 03:59 → ERHOLD 06:41 → SJJU 10:38 → OBSVTOIN 10:40
PROVIDERS: ADMIT Internal Medicine; ATTEND Internal Medicine
PROC: 30233N1 Transfusion of Nonautologous Red Blood Cells into Peripheral Vein, Percutaneous Approach (ICD-10-PCS; 2019-06-03)
PROC: 0W9G3ZZ Drainage of Peritoneal Cavity, Percutaneous Approach (ICD-10-PCS; principal; 2019-06-04)
DX: C92.00 Acute myeloblastic leukemia, not having achieved remission (principal); D61.818 Other pancytopenia; R18.8 Other ascites; D68.9 Coagulation defect, unspecified; K74.69 Other cirrhosis of liver; K72.90 Hepatic failure, unspecified without coma; F17.200 Nicotine dependence, unspecified, uncomplicated; Z66 Do not resuscitate; I25.10 Atherosclerotic heart disease of native coronary artery without angina pectoris; D46.9 Myelodysplastic syndrome, unspecified; E53.8 Deficiency of other specified B group vitamins; D63.0 Anemia in neoplastic disease; Z95.1 Presence of aortocoronary bypass graft; Z95.0 Presence of cardiac pacemaker; Z88.0 Allergy status to penicillin
CPT/HCPCS: 36415; 36430; 49083; 74177; 80053; 80074; 81256; 82103; 82104; 82140; 82390; 82607; 82728; 82746; 83516; 83540; 83550; 84157; 85025; 85046; 85060; 85610; 85730; 86038; 86225; 86850; 86900; 86901; 87070; 87205; 88112; 88184; 88185; 89051; 93005; C9113; J2405; P9016; Q9967